=== PATIENT | female | born 1975 | race Caucasian/White ===

== ENCOUNTER → 2018-09-17 14:42 | Outpatient (CLI) | payer OTHER, SELFPAY ==
--- NOTE | 2018-09-17 | DI.MG.S_ITS ---
BILATERAL DIGITAL SCREENING MAMMOGRAM 3D/2D WITH CAD: 09/17/2018 CLINICAL: Routine screening. Family history of breast cancer. Comparison is made to exams dated: 12/27/2016 mammogram, 12/14/2015 mammogram, and 12/12/2014 mammogram - [facility]. The tissue of both breasts is heterogeneously dense. This may lower the sensitivity of mammography. Current study was also evaluated with a Computer Aided Detection (CAD) system. No significant masses, calcifications, or other findings are seen in either breast. There has been no significant interval change. IMPRESSION: NEGATIVE There is no mammographic evidence of malignancy. A 1 year screening mammogram is recommended. This exam was interpreted at Station ID: [id number]. NOTE: For mammograms, a report in lay terms will be sent to the patient. Approximately 15% of breast malignancies will not be visualized mammographically. In the management of a palpable breast mass, a negative mammogram must not discourage biopsy of a clinically suspicious lesion. Electronically Signed By: Sandeep cardoza/elva:09/18/2018 13:51:05 letter sent: Normal Exam ACR BI-RADS Category 1: Negative 3341F
== END ==
PROVIDERS: Visit Provider Nurse Practitioner Obstetrics & Gynecology
DX: Z12.31 Encounter for screening mammogram for malignant neoplasm of breast (principal); Z80.3 Family history of malignant neoplasm of breast
CPT/HCPCS: 77063; 77067

== ENCOUNTER → 2019-07-23 13:11 | Outpatient (CLI) | payer OTHER, SELFPAY ==
--- NOTE | 2019-07-23 | DI.US.S_ITS ---
PROCEDURE: US ABDOMEN COMPLETE INDICATIONS: CROHNS DISEASE, ELEVATED LFT'S TECHNIQUE: Real-time scanning was performed of the abdominal and retroperitoneal organs, with image documentation. COMPARISON: None. FINDINGS: Liver: Liver is diffusely increased in echogenicity. No focal hepatic abnormalities identified. Normal hepatic size. Gallbladder: Surgically absent. Biliary ducts: Intrahepatic bile ducts are non-dilated. Extrahepatic bile duct caliber measures 5.0 mm. Normal is 6-7 mm or less in diameter, or 10 mm or less post-cholecystectomy. Pancreas: Visualized portions of the pancreas are sonographically normal. Spleen: Spleen is normal in size and homogeneous in echotexture. Kidneys: Kidneys are normal in size and echotexture. Right kidney measures 10.3 cm long; left kidney measures 9.1 cm long. No hydronephrosis or nephrolithiasis. No solid masses. Note, the lower pole right kidney is partially obscured. Aorta: Visualized aorta is normal in caliber at less than 3 cm. Iliacs: Proximal common iliac arteries are normal in caliber at less than 2.5 cm. IVC: Intrahepatic inferior vena cava is patent. Miscellaneous: No free abdominal fluid. IMPRESSION: Increased hepatic echogenicity noted possibly related to hepatic steatosis but other sources of hepatocellular disease cannot be excluded. Recommend clinical correlation. Dictated by: Juan GOVEA Interpreted: Antonia Ma MD on 07/23/2019 at 15:26 Approved by: Antonia aM M.D. on 07/23/2019 at 17:42
== END ==
PROVIDERS: Visit Provider Internal Medicine Gastroenterology
DX: K50.00 Crohn's disease of small intestine without complications (principal); R79.89 Other specified abnormal findings of blood chemistry; Z90.49 Acquired absence of other specified parts of digestive tract
CPT/HCPCS: 76700

== ENCOUNTER → 2020-12-30 15:48 | Outpatient (CLI) | payer OTHER, SELFPAY ==
--- NOTE | 2020-12-30 15:49 | DI.MG.S_ITS ---
BILATERAL DIGITAL SCREENING MAMMOGRAM 3D/2D WITH CAD: 12/30/2020 CLINICAL: Routine screening. Family history of breast cancer. Comparison is made to exams dated: 09/17/2018 mammogram - [facility], 12/27/2016 mammogram, and 12/14/2015 mammogram - [facility]. There are scattered fibroglandular elements in both breasts. Current study was also evaluated with a Computer Aided Detection (CAD) system. No significant masses, calcifications, or other findings are seen in either breast. There has been no significant interval change. IMPRESSION: NEGATIVE There is no mammographic evidence of malignancy. A 1 year screening mammogram is recommended. This exam was interpreted at Station ID: [id number]. NOTE: For mammograms, a report in lay terms will be sent to the patient. Approximately 15% of breast malignancies will not be visualized mammographically. In the management of a palpable breast mass, a negative mammogram must not discourage biopsy of a clinically suspicious lesion. Electronically Signed By: Antonia cooper/elva:12/30/2020 16:23:22 letter sent: Normal Exam ACR BI-RADS Category 1: Negative 3341F
== END ==
PROVIDERS: PCP Nurse Practitioner Obstetrics & Gynecology; Referring Provider Nurse Practitioner Obstetrics & Gynecology; Visit Provider Nurse Practitioner Obstetrics & Gynecology
DX: Z12.31 Encounter for screening mammogram for malignant neoplasm of breast (principal); Z80.3 Family history of malignant neoplasm of breast
CPT/HCPCS: 77063; 77067

== ENCOUNTER → 2022-05-25 09:12 | Outpatient (CLI) | payer OTHER, SELFPAY ==
--- NOTE | 2022-05-25 09:15 | DI.MG.S_ITS ---
BILATERAL DIGITAL SCREENING MAMMOGRAM 3D/2D WITH CAD: 05/25/2022 CLINICAL: Routine screening. Family history of breast cancer. Comparison is made to exams dated: 12/30/2020 mammogram, 09/17/2018 mammogram - [facility], 12/27/2016 mammogram, and 12/14/2015 mammogram - [facility]. There are scattered areas of fibroglandular density in both breasts (category b / 25%-50% glandular tissue). Current study was also evaluated with a Computer Aided Detection (CAD) system. No significant masses, calcifications, or other findings are seen in either breast. There has been no significant interval change. IMPRESSION: NEGATIVE There is no mammographic evidence of malignancy. A 1 year screening mammogram is recommended. This exam was interpreted at Station ID: [id number]. NOTE: For mammograms, a report in lay terms will be sent to the patient. Approximately 15% of breast malignancies will not be visualized mammographically. In the management of a palpable breast mass, a negative mammogram must not discourage biopsy of a clinically suspicious lesion. Electronically Signed By: Augustus dang/elva:05/25/2022 12:54:42 letter sent: Normal Exam ACR BI-RADS Category 1: Negative 3341F
== END ==
PROVIDERS: PCP Nurse Practitioner Obstetrics & Gynecology; Referring Provider Nurse Practitioner Obstetrics & Gynecology; Visit Provider Nurse Practitioner Obstetrics & Gynecology
DX: Z12.31 Encounter for screening mammogram for malignant neoplasm of breast (principal); Z80.3 Family history of malignant neoplasm of breast
CPT/HCPCS: 77063; 77067

== ENCOUNTER → 2023-07-04 08:19 | Outpatient (CLI) | payer OTHER, SELFPAY ==
--- NOTE | 2023-07-04 | DI.MG.S_ITS ---
BILATERAL DIGITAL SCREENING MAMMOGRAM 3D/2D WITH CAD: 07/04/2023 Comparison is made to exams dated: 05/25/2022 mammogram, 12/30/2020 mammogram, and 09/17/2018 mammogram - [facility]. There are scattered areas of fibroglandular density in both breasts (category b / 25%-50% glandular tissue). Current study was also evaluated with a Computer Aided Detection (CAD) system. No significant masses, calcifications, or other findings are seen in either breast. IMPRESSION: NEGATIVE There is no mammographic evidence of malignancy. A 1 year screening mammogram is recommended. Based on the Tyrer Cuzick model (a risk assessment model) the patient's lifetime risk is 16.4% and her 10 year risk is 3.7%. According to the ACR, ACS, and NCCN guidelines, an annual breast MRI exam along with mammogram is recommended if the patient's lifetime risk is 20% or greater. This exam was interpreted at Station ID: [id number]. NOTE: For mammograms, a report in lay terms will be sent to the patient. Approximately 15% of breast malignancies will not be visualized mammographically. In the management of a palpable breast mass, a negative mammogram must not discourage biopsy of a clinically suspicious lesion. Electronically Signed By: Giovanna whiteside/elva:07/04/2023 17:10:01 letter sent: Normal Exam ACR BI-RADS Category 1: Negative 3341F
== END ==
PROVIDERS: PCP Nurse Practitioner Obstetrics & Gynecology; Referring Provider Nurse Practitioner Obstetrics & Gynecology; Visit Provider Nurse Practitioner Obstetrics & Gynecology
DX: Z12.31 Encounter for screening mammogram for malignant neoplasm of breast (principal)
CPT/HCPCS: 77063; 77067

== ENCOUNTER → 2024-07-23 08:10 | Outpatient (CLI) | payer OTHER, SELFPAY ==
--- NOTE | 2024-07-23 | DI.MG.S_ITS ---
BILATERAL DIGITAL SCREENING MAMMOGRAM 3D/2D WITH CAD: 07/23/2024 CLINICAL: Routine screening. Family history of breast cancer. Comparison is made to exams dated: 07/04/2023 mammogram, 05/25/2022 mammogram, and 12/30/2020 mammogram - [facility]. There are scattered areas of fibroglandular density (category b / 25%-50% glandular tissue). Current study was also evaluated with a Computer Aided Detection (CAD) system. No significant masses, calcifications, or other findings are seen in either breast. There has been no significant interval change. IMPRESSION: NEGATIVE There is no mammographic evidence of malignancy. A 1 year screening mammogram is recommended. Based on the Tyrer Cuzick model (a risk assessment model) the patient's lifetime risk is 16.2% and her 10 year risk is 3.9%. According to the ACR, ACS, and NCCN guidelines, an annual breast MRI exam along with mammogram is recommended if the patient's lifetime risk is 20% or greater. This exam was interpreted at Station ID: [id number]. NOTE: For mammograms, a report in lay terms will be sent to the patient. Approximately 15% of breast malignancies will not be visualized mammographically. In the management of a palpable breast mass, a negative mammogram must not discourage biopsy of a clinically suspicious lesion. Electronically Signed By: Giovanna Rincon M.D., Ph.D. nanda/elva:07/24/2024 01:47:23 letter sent: Normal Exam ACR BI-RADS Category 1: Negative
== END ==
DX: Z12.31 Encounter for screening mammogram for malignant neoplasm of breast (principal); Z80.3 Family history of malignant neoplasm of breast
CPT/HCPCS: 77063; 77067

== ENCOUNTER 2024-08-14 07:52 | Observation (INO) | payer OTHER, SELFPAY ==
[2024-08-14] VITALS (12 sets, daily range): BP systolic 127–171; BP diastolic 63–91; PULSE 65–93; RESP 13–16; TEMP 36.4–37.2; O2SAT 95–100; BMI 34.8
--- NOTE | 2024-08-14 08:10 | ED.ABDPAIN ---
HPI - Abdominal Pain General Chief Complaint: Abdominal Pain Stated Complaint: abd pain Time Seen by Provider: 08/14/24 08:04 History of Present Illness HPI narrative: Patient here with . Complains abdominal pain nausea and vomiting. No fever chills. Patient has history of Crohn's disease on Remicade followed by gastroenterology [facility]. Has been doing well, had colon resection more than 15 years ago. History of bowel obstruction. Patient states feels similar to this. Symptoms started yesterday. No urinary complaints. Has abdominal pain that radiates to the back off and on. No chest pain. Related Data Home Medications Medication Instructions Recorded Confirmed estradiol 0.05 mg/24 hr semiweekly 0.05 mg transdermal 2XW hormone 08/14/24 08/14/24 transdermal patch (Shelli) therapy estradiol 10 mcg vaginal tablet 10 mcg vaginal 2XW hormone therapy 08/14/24 08/14/24 infliximab-dyyb 120 mg/mL 120 mg SUBCUT WEEKLY Crohns 08/14/24 08/14/24 subcutaneous pen kit (Zymfentra) ondansetron 4 mg disintegrating 4 mg sublingual Q6HP PRN Nausea 08/14/24 08/14/24 tablet And Vomiting opium tincture 10 mg/mL (morphine) 0.6 ml PO 4XD PRN diarrhea 08/14/24 08/14/24 oral opium tincture 10 mg/mL (morphine) 0.6 ml PO 4XD PRN diarrhea 08/14/24 08/14/24 oral prednisone 20 mg tablet 20 mg PO DAILY sinus infection 08/14/24 08/14/24 progesterone micronized 100 mg 200 mg PO DAILY hormone therapy 08/14/24 08/14/24 capsule rizatriptan 10 mg tablet 10 mg PO SEE INSTRUCTIONS headache 08/14/24 08/14/24 sulfamethoxazole 800 1 tab PO BID sinus infection 08/14/24 08/14/24 mg-trimethoprim 160 mg tablet Allergies Allergy/AdvReac Type Severity Reaction Status Date / Time No Known Drug Allergies Allergy Verified 08/14/24 08:02 Review of Systems Review of Systems Narrative: GENERAL: negative chills, fatigue, malaise, fever, sweats. HEENT: negative sinus pain, ear pain, sore throat RESPIRATORY: negative dyspnea, cough CARDIOVASCULAR: negative chest pain, palpitations GASTROINTESTINAL: Positive nausea, vomiting, abdominal pain : negative dysuria, frequency, hematuria MUSCULOSKELETAL: negative muscle or bony pain SKIN: negative rash, skin lesions NEUROLOGIC: negative weakness, numbness ROS Unobtainable: All systems reviewed & are unremarkable except as noted in HPI and below Patient History Surgical History Status post cholecystectomy Family History Grandfather Heart disease Grandmother Heart disease Mother Age: 76 Hypertension Grandmother Gallbladder cancer Sister Age: 44 Melanoma Social History household members: spouse Smoking Status: Never smoker Exam Narrative Exam Narrative: GENERAL: in no distress, not toxic not dyspneic HEAD: Normocephalic. EYES: Pupils equal round ENT: Mucous membranes moist. NECK: Trachea midline. CARDIOVASCULAR: Regular rate and rhythm RESPIRATORY: Clear to auscultation. Breath sounds equal bilaterally. No wheezes, rales, or rhonchi. GASTROINTESTINAL: Abdomen soft, mild diffuse tenderness no peritoneal signs bowel sounds are present no guarding or rebound. No CVA tenderness. No pain out of portion exam. Not tympanic on percussion EXTREMITIES: No gross deformities. BACK: No flank tenderness. NEURO: AOx4. SKIN: Warm and dry PSYCH: Not anxious, is cooperative Initial Vital Signs Initial Vital Signs: Vital Signs Pulse Rate 93 H 08/14/24 07:59 Blood Pressure 171/91 H 08/14/24 07:59 Pulse Oximetry 95 08/14/24 07:59 Course Orders Ordered: Discontinued Medications Acetaminophen (Acetaminophen 325 Mg Tablet) 650 mg PO Q6H PRN PRN Reason: Pain, Mild (1-3) Last Admin: 08/15/24 10:48 Dose: 650 mg Documented By: ANT Enoxaparin Sodium (Enoxaparin 40 Mg/0.4 Ml Syringe) 40 mg SUBCUT DAILY [facility] Last Admin: 08/15/24 07:55 Dose: Not Given Documented By: Admin: 08/14/24 11:45 Dose: Not Given Documented By: CRISTIANA Hydromorphone HCl (Hydromorphone 1 Mg Inj) 1 mg IV NOW ONE Stop: 08/14/24 10:01 Last Admin: 08/14/24 10:14 Dose: 1 mg Documented By: CAMERON Hydromorphone HCl (Hydromorphone 0.5 Mg Inj) 0.5 mg IV Q2H PRN PRN Reason: Pain, Severe (7-10) Last Admin: 08/14/24 21:07 Dose: 0.5 mg Documented By: Admin: 08/14/24 13:48 Dose: 0.5 mg Documented By: CRISTIANA Sodium Chloride (Normal Saline 0.9%) 1,000 mls @ 1,000 mls/hr IV BOLUS ONE Stop: 08/14/24 09:08 Last Infusion: 08/14/24 09:19 Dose: Infused Documented By: Admin: 08/14/24 08:11 Dose: 1,000 mls/hr Documented By: CAMERON Sodium Chloride (Normal Saline 0.9%) 1,000 mls @ 100 mls/hr IV CONT GUALBERTO Last Admin: 08/15/24 07:53 Dose: 100 mls/hr Documented By: Infusion: 08/15/24 07:10 Dose: Infused Documented By: Admin: 08/14/24 21:10 Dose: 100 mls/hr Documented By: Infusion: 08/14/24 21:10 Dose: Infused Documented By: Admin: 08/14/24 11:47 Dose: 100 mls/hr Documented By: CRISTIANA POTASSIUM CHLORIDE IN WATER (Potassium Cl 10 Meq/100 Ml Gema) 10 meq in 100 mls @ 100 mls/hr IV Q1H GUALBERTO Stop: 08/15/24 09:44 Last Admin: 08/15/24 09:57 Dose: Not Given Documented By: Admin: 08/15/24 07:57 Dose: 100 mls/hr Documented By: ANT Morphine Sulfate (Morphine 4 Mg/Ml Inj) 4 mg IV NOW ONE Stop: 08/14/24 08:28 Last Admin: 08/14/24 08:41 Dose: 4 mg Documented By: CAMERON Naloxone HCl (Naloxone 0.4 Mg/Ml Vial) 0.2 mg IV Q2MIN PRN PRN Reason: Opiate Reversal Ondansetron HCl (Ondansetron 4 Mg/2 Ml Inj) 4 mg IV NOW ONE Stop: 08/14/24 08:07 Last Admin: 08/14/24 08:12 Dose: 4 mg Documented By: CAMERON Ondansetron HCl (Ondansetron 4 Mg/2 Ml Inj) 4 mg IV Q8HR PRN PRN Reason: Nausea And Vomiting Last Admin: 08/14/24 13:54 Dose: 4 mg Documented By: CRISTIANA Potassium Chloride (Potassium Chloride 20 Meq Tab) 20 meq PO NOW ONE Stop: 08/15/24 08:54 Last Admin: 08/15/24 09:14 Dose: 20 meq Documented By: ANT Vital Signs Vital signs: Vital Signs - 8 hr 08/14/24 07:59 08/14/24 07:59 08/14/24 08:00 Temperature Pulse Rate 93 H 89 Respiratory Rate Blood Pressure 171/91 H Pulse Oximetry 95 100 Oxygen Delivery Method 08/14/24 08:02 08/14/24 08:10 08/14/24 08:10 Temperature 97.5 F L Pulse Rate 78 80 Respiratory Rate 16 Blood Pressure 171/91 H 168/88 H Pulse Oximetry 100 98 Oxygen Delivery Method Room Air 08/14/24 08:35 08/14/24 08:36 08/14/24 08:36 Temperature Pulse Rate 77 75 Respiratory Rate Blood Pressure 165/82 H Pulse Oximetry 98 99 Oxygen Delivery Method 08/14/24 09:00 08/14/24 09:00 Temperature Pulse Rate 72 Respiratory Rate Blood Pressure 132/63 Pulse Oximetry 99 Oxygen Delivery Method MDM - Abdominal Pain Lab Data 08/15/24 06:20 08/15/24 06:20 Labs: Lab Results 08/14/24 08/14/24 Range/Units 07:55 08:05 WBC 16.0 H (4.5-11.0) X10^3/uL RBC 5.07 (4.0-5.2) X10^6/uL Hgb 15.4 (12.0-16.0) g/dL Hct 45.7 (36-46) % MCV 90.3 (80-100) fL MCH 30.5 (26-34) PG MCHC 33.8 (30-36) % RDW 13.4 (11.6-14.8) % Plt Count 360 (150-400) X10^3/uL Neut % (Auto) 71.9 (50-75) % Lymph % (Auto) 23.4 L (25-40) % Sibley % (Auto) 4.0 (3-14) % Eos % (Auto) 0.1 L (2-4) % Baso % (Auto) 0.6 (0-2) % Neut # (Auto) 31880 H (6677-5705) /uL Lymph # (Auto) 3700 (1359-6389) /uL Sibley # (Auto) 600 (0-900) /uL Eos # (Auto) 0 (0-450) /uL Baso # (Auto) 100 (0-100) /uL Sodium 138 (137-145) mmol/L Potassium 3.9 (3.4-5.1) mmol/L Chloride 103 (98-107) mmol/L Carbon Dioxide 30 (22-32) mmol/L BUN 11 (7-17) mg/dL Creatinine 1.06 H (0.52-1.04) mg/dL Estimated GFR > 60 (>60) mL/min BUN/Creatinine Ratio 10.4 (6-22) Glucose 114 H (70-100) mg/dL Calcium 9.4 (8.4-10.2) mg/dL Total Bilirubin 0.5 (0.2-1.3) mg/dL AST 21 (14-36) IU/L ALT 18 (<35) IU/L Alkaline Phosphatase 72 (38-126) U/L Total Protein 8.2 (6.3-8.2) g/dL Albumin 4.5 (3.5-5.0) g/dL Globulin 3.7 (1.7-4.1) g/dL Albumin/Globulin Ratio 1.2 (1.0-2.8) Lipase 79 (23-300) U/L Urine RBC None seen (0-5/HPF) Urine WBC 1-5/hpf (0-5/HPF) Ur Squamous Epith Cells 1-5 /hpf (0-5/HPF) Urine Bacteria None seen (None) Ur Culture Indicated? Specimen cultured Vol Urine Centrifuged 10ml (spun) Point of care testing: Point of Care Testing Test Results Negative Urine Dip Bedside Urine Glucose Negative Bedside Urine Bilirubin - Negative Bedside Urine Ketone +/- 5 Urine Specific Cameron 1.030 Bedside Urine Occult Blood - Negative Bedside Urine pH 6.0 Bedside Urine Protein + 30 Bedside Urine Urobilinogen - Negative Bedside Urine Nitrite - Negative Bedside Urine Leukocytes +/- [address] scan - abdomen/pelvis: Radiologist's Impression: [address] [place] [address] CT Scan Report Signed Patient: Corina Chan MR#: [id number] : 1975 Acct:[id number] Age/Sex: 49 / F Date of Service: 08/14/24 Loc: ED Accession Number: [id number] Procedure: CT abdomen pelvis w con Ordering Provider: Clayton Durham MD PROCEDURE: CT ABDOMEN PELVIS W CON INDICATIONS: abdominal pain/possible bowel obstruction TECHNIQUE: After the administration of intravenous contrast, axial sections acquired from the lung bases to the pubic symphysis. Coronal and sagittal reformats were performed. For radiation dose reduction, the following was used: automated exposure control, adjustment of mA and/or kV according to patient size. COMPARISON: None. FINDINGS: Image quality: Diagnostic Lower chest: Mild right base atelectasis. Normal heart size. Possible small hiatal hernia. Liver: Unremarkable Gallbladder and biliary system: Cholecystectomy clips, nondilated biliary system allowing for postsurgical state Pancreas: No ductal dilation Spleen: Nonenlarged Adrenals: No discrete nodules Kidneys: No solid mass. No hydronephrosis. Vessels and lymph nodes: The main portal vein appears patent. No abdominal aortic aneurysm. No pathologic lymph nodes by size criteria. Bowel and peritoneum: There is mild gastric distention. There is small bowel obstruction with borderline dilation the jejunal loops up to 3.2 cm in diameter. Transition is seen in the mid abdomen, with fecalized material. The ileal loops are under distended. Colonic diverticula are seen. Small amount pelvic free fluid. Body wall: Tiny fat containing umbilical hernia Pelvis: Bladder is under distended, overall unremarkable. Reproductive organs are not well evaluated on CT, also unremarkable. Bones: No acute or suspicious osseous findings. There are degenerative changes. IMPRESSION: Small bowel obstruction with transition in the mid abdomen in the expected position of the distal jejunum/proximal ileum. Mild gastric distention. Small amount pelvic free fluid, probably reactive. Other findings above. Dictated by: Jericho Jackson M.D. on 08/14/2024 at 9:02 Approved by: Jericho Jackson M.D. on 08/14/2024 at 9:06 [facility] Narrative Medical decision making narrative: Patient here with . Complains abdominal pain nausea and vomiting. No fever chills. Patient has history of Crohn's disease on Remicade followed by gastroenterology [facility]. Has been doing well, had colon resection more than 15 years ago. History of bowel obstruction. Patient states feels similar to this. Symptoms started yesterday. No urinary complaints. Has abdominal pain that radiates to the back off and on. No chest pain. After history and exam CBC CMP lipase urinalysis morphine Zofran normal saline CT abdomen pelvis MDM Medical records reviewed: No recent visit for this complaint Differential considered: Includes but not limited to bowel obstruction colitis diverticulitis appendicitis bowel perforation Lab Test results independently reviewed as above. Pertinent findings: WBC 16 hemoglobin 15 sodium 138 potassium 3.9 bicarb 30 BUN 11 creatinine 1.06 lipase 79 Independently reviewed EKG none indicated at this time Imaging studies independently reviewed: CT abdomen pelvis reveals small bowel obstruction Consultations: 9:30 a.m.. Spoke with General surgery Dr. Alcala, who would like medicine to admit and he will follow in consult. No NG tube indicated at this time, 9:[address] Kamara, hospitalist, who will admit patient Treatments: Morphine Zofran normal saline Re-evaluations: 9:15 a.m.. Updated patient Diagnosis bowel obstructions, they do agree for admission. Pain is controlled. Nausea is controlled. Discussion: Appropriate for admission for bowel obstruction. General surgery and hospitalist contacted. Patient and agree for admit. Diagnosis: Small-bowel obstruction Discharge Plan Departure Patient Disposition: Admitted as Observation Clinical Impression: Small bowel obstruction Admit Date/Time: 08/14/24 09:40 Admit Provider: Augusto Kamara
[2024-08-14] MEDS: SODIUM CHLORIDE 0.9% 1,000 ML 1000 ML IV (08:11)
[2024-08-14] MEDS: ONDANSETRON 4 MG/2 ML INJ IV ×2 (08:12→13:54)
[2024-08-14 08:17] LABS: Add Manual Diff / Slide Review NO; Basophils Absolute Auto 100 /uL (0-100); Basophils Percent Auto 0.6 % (0-2); Eosinophils Absolute Auto 0 /uL (0-450); Eosinophils Percent Auto 0.1 % (2-4); Hematocrit 45.7 % (36-46); Hemoglobin 15.4 g/dL (12.0-16.0); Lymphocytes Absolute Auto 3700 /uL (1100-4500); Lymphocytes Percent Auto 23.4 % (25-40); Mean Corpuscular HGB Conc 33.8 % (30-36); Mean Corpuscular Hemoglobin 30.5 PG (26-34); Mean Corpuscular Volume 90.3 fL (80-100); Monocytes Absolute Auto 600 /uL (0-900); Neutrophils Absolute Auto 11500 /uL (1500-7000); Neutrophils Percent Auto 71.9 % (50-75); Platelet Count 360 X10^3/uL (150-400); Red Blood Cell Count 5.07 X10^6/uL (4.0-5.2); Red Cell Distribution Width 13.4 % (11.6-14.8)
[2024-08-14 08:19] LABS: RBC Urine None Seen (0-5/HPF); Urine Volume 10mL (spun)
[2024-08-14 08:20] LABS: Bacteria Urine None Seen; Culture Indicated Urine Specimen Cultured; Squamous Epithelial Cell Urine 1-5 /HPF (0-5/HPF); WBC Urine 1-5/HPF (0-5/HPF)
[2024-08-14 08:39] LABS: Alanine Aminotransferase 18 IU/L (<35); Albumin 4.5 g/dL (3.5-5.0); Albumin Globulin Ratio 1.2 (1.0-2.8); Alkaline Phosphatase 72 U/L (38-126); Aspartate Aminotransferase 21 IU/L (14-36); BUN Creatinine Ratio 10.4 (6-22); Bilirubin Total 0.5 mg/dL (0.2-1.3); Blood Urea Nitrogen 11 mg/dL (7-17); Calcium 9.4 mg/dL (8.4-10.2); Carbon Dioxide 30 mmol/L (22-32); Chloride 103 mmol/L (98-107); Estimated Glomerular Filt Rate > 60 mL/min (>60); Globulin 3.7 g/dL (1.7-4.1); Glucose 114 mg/dL (70-100); HEMOLYSIS < 15 (0-50); Lipase 79 U/L (23-300); Potassium 3.9 mmol/L (3.4-5.1); Sodium 138 mmol/L (137-145); Total Protein 8.2 g/dL (6.3-8.2)
[2024-08-14] MEDS: MORPHINE 4 MG/ML INJ IV (08:41)
[2024-08-14] MEDS: HYDROMORPHONE 1 MG INJ IV (10:14)
--- NOTE | 2024-08-14 10:47 | PM.HP.1 ---
History of Present Illness History of Present Illness Date Patient Seen: 08/14/24 Time Patient Seen: 10:47 Chief complaint: abd pain Narrative: The patient was a 49-year-old female with a history of Crohn's disease on chronic Remicade. She was followed by [facility]. She does have a history of colon resection distantly as well as a history of subsequent bowel obstruction. She presented with the abdominal pain with symptoms ongoing since yesterday. She notes that she was having recurrent partial small-bowel obstructions 20 years ago that led up to the decision to do a limited resection of distal small bowel and possibly a partial sigmoid colectomy. She has been around on Remicade and stable since that time. She developed abdominal pain yesterday, lack of flatus and bowel movements at reminded her of her previous bowel obstructions. The pain is midepigastric and left upper quadrant. There was no radiation to the pain. Pain medications in the ED did help the pain. She denies fevers or chills. She has been on Remicade for a very long time. She notes that her inflammatory markers are usually normal even when her Crohn's is active. No recent diarrhea, no BM since yesterday. No rectal bleeding. [facility] Surgical History Status post cholecystectomy Family History Grandfather Heart disease Grandmother Heart disease Mother Age: 76 Hypertension Grandmother Gallbladder cancer Sister Age: 44 Melanoma Meds Home Medications and Allergies Home Medications Medication Instructions Recorded Confirmed Type methocarbamol 750 mg tablet 750 mg PO QIDP PRN #120 tabs 05/02/17 Rx (Robaxin-750) ondansetron 4 mg disintegrating 4 mg sublingual Q6HP PRN ##30 05/02/17 Rx tablet (Zofran ODT) rizatriptan 10 mg tablet 10 mg PO SEE INSTRUCTIONS #30 tabs 05/02/17 Rx liattnxq-kyrzcbbtj-tcroxjkju 3.5 10 ml OTIC TID ##1 05/05/17 Rx mg-10,000 unit/mL-1 % ear drops,susp levothyroxine 50 mcg tablet 50 mcg PO QAM #90 tabs 06/20/17 Rx Allergies Allergy/AdvReac Type Severity Reaction Status Date / Time No Known Drug Allergies Allergy Verified 08/14/24 08:02 Review of Systems Review of Systems Narrative: All else reviewed and otherwise unremarkable except as noted in the history and physical. Exam Vital Signs (past 8 hours): - 08/14/24 07:59 08/14/24 07:59 08/14/24 08:00 Temperature Pulse Rate 93 H 89 Respiratory Rate Blood Pressure 171/91 H Pulse Oximetry 95 100 Oxygen Delivery Method 08/14/24 08:02 08/14/24 08:10 08/14/24 08:10 Temperature 97.5 F L Pulse Rate 78 80 Respiratory Rate 16 Blood Pressure 171/91 H 168/88 H Pulse Oximetry 100 98 Oxygen Delivery Method Room Air 08/14/24 08:35 08/14/24 08:36 08/14/24 08:36 Temperature Pulse Rate 77 75 Respiratory Rate Blood Pressure 165/82 H Pulse Oximetry 98 99 Oxygen Delivery Method 08/14/24 09:00 08/14/24 09:00 08/14/24 09:30 Temperature Pulse Rate 72 69 Respiratory Rate Blood Pressure 132/63 Pulse Oximetry 99 98 Oxygen Delivery Method 08/14/24 09:30 08/14/24 10:00 08/14/24 10:00 Temperature Pulse Rate 73 Respiratory Rate Blood Pressure 127/70 129/71 Pulse Oximetry 97 Oxygen Delivery Method Oxygen Delivery Method Room Air Narrative Exam Narrative: NAD, alert and oriented, fluent speech, calm. Normocephalic skull, EOMI, anicteric sclera, symmetric pupils. Oropharynx unremarkable, no droop. Neck supple, midline trachea, no adenopathy. Lungs clear, normal rate and effort. Heart regular, no murmur gallop or rub. Abdomen is soft, non distended and non tender. Hypoactive bowel tones. Extremities are free of edema. Skin is free of rash or lesions. Joints are not swollen or deformed. Judgment appears to be normal. Objective Imaging CT scan - abdomen: Radiologist's impression: MPRESSION: Small bowel obstruction with transition in the mid abdomen in the expected position of the distal jejunum/proximal ileum. Mild gastric distention. Small amount pelvic free fluid, probably reactive. Other findings above. Labs 08/14/24 08:05 08/14/24 08:05 Labs: Laboratory Results - last 24 hr 08/14/24 08/14/24 07:55 08:05 WBC 16.0 H RBC 5.07 Hgb 15.4 Hct 45.7 MCV 90.3 MCH 30.5 MCHC 33.8 RDW 13.4 Plt Count 360 Neut % (Auto) 71.9 Lymph % (Auto) 23.4 L [place] % (Auto) 4.0 Eos % (Auto) 0.1 L Baso % (Auto) 0.6 Neut # (Auto) 94461 H Lymph # (Auto) 3700 [place] # (Auto) 600 Eos # (Auto) 0 Baso # (Auto) 100 Sodium 138 Potassium 3.9 Chloride 103 Carbon Dioxide 30 BUN 11 Creatinine 1.06 H Estimated GFR > 60 BUN/Creatinine Ratio 10.4 Glucose 114 H Calcium 9.4 Total Bilirubin 0.5 AST 21 ALT 18 Alkaline Phosphatase 72 Total Protein 8.2 Albumin 4.5 Globulin 3.7 Albumin/Globulin Ratio 1.2 Lipase 79 Urine RBC None seen Urine WBC 1-5/hpf Ur Squamous Epith Cells 1-5 /hpf Urine Bacteria None seen Ur Culture Indicated? Specimen cultured Vol Urine Centrifuged 10ml (spun) Assessment & Plan Assessment & Plan narrative: 1. Small bowel obstruction, present on admission and active. 2. Remote partial colectomy, present on admission and active. 3. Crohn's disease, present on admission and active Plan: -NPO -ice chips -analgesics -NG tube decompression if she fails to improve or worsens. -general surgery is consulted. Resuscitation status is full code Anticipate 1 night of hospital stay, observation status. Proxy decision maker is Time-Based Coding :: 35 min spent with patient and on the chart (including review of chart, obtaining history, exam, reviewing outside data, placing orders, documenting exam and treatment plan, and counseling patient) on 08/14. Quality MIPS - Admit The patient?s Advance Care plan is not present because I confirmed today that the patient does not wish or was not able to name a surrogate decision maker or provide an Advance Care Plan.: Yes MIPS - Meds 'Current medications' to include all prescriptions, ozbl-pbi-etofddo products, herbals, cannabis/cannabidiol products, and vitamin/mineral/dietary (nutritional) supplements. I have utilized all available resources to obtain, update, or review the patient?s current medications. [If Yes, STOP here]: Yes
[2024-08-14] MEDS: SODIUM CHLORIDE 0.9% 1,000 ML 100 ML IV ×2 (11:47→21:10)
[2024-08-14] MEDS: HYDROMORPHONE 0.5 MG INJ IV ×2 (13:48→21:07)
[2024-08-15] VITALS: BP 131/83; PULSE 64; RESP 18; TEMP 36.6; O2SAT 95
[2024-08-15 04:39] VITALS: BP 141/84; PULSE 64; RESP 16; TEMP 37.3; O2SAT 97
[2024-08-15 06:44] LABS: Add Manual Diff / Slide Review NO; Basophils Absolute Auto 100 /uL (0-100); Basophils Percent Auto 0.8 % (0-2); Eosinophils Absolute Auto 200 /uL (0-450); Eosinophils Percent Auto 1.3 % (2-4); Hematocrit 40.5 % (36-46); Hemoglobin 13.4 g/dL (12.0-16.0); Lymphocytes Absolute Auto 4100 /uL (1100-4500); Lymphocytes Percent Auto 32.5 % (25-40); Mean Corpuscular HGB Conc 33.2 % (30-36); Mean Corpuscular Hemoglobin 30.1 PG (26-34); Mean Corpuscular Volume 90.6 fL (80-100); Monocytes Absolute Auto 700 /uL (0-900); Monocytes Percent Auto 5.3 % (3-14); Neutrophils Absolute Auto 7600 /uL (1500-7000); Neutrophils Percent Auto 60.1 % (50-75); Platelet Count 284 X10^3/uL (150-400); Red Blood Cell Count 4.47 X10^6/uL (4.0-5.2); Red Cell Distribution Width 13.7 % (11.6-14.8); White Blood Cell Count 12.6 X10^3/uL (4.5-11.0)
[2024-08-15 07:01] LABS: BUN Creatinine Ratio 16.5 (6-22); Blood Urea Nitrogen 13 mg/dL (7-17); Calcium 8.1 mg/dL (8.4-10.2); Carbon Dioxide 26 mmol/L (22-32); Chloride 107 mmol/L (98-107); Estimated Glomerular Filt Rate > 60 mL/min (>60); Glucose 95 mg/dL (70-100); HEMOLYSIS < 15 (0-50); Potassium 3.4 mmol/L (3.4-5.1); Sodium 137 mmol/L (137-145)
[2024-08-15 07:23] LABS: C-Reactive Protein Quant < 0.5 mg/dL (<1.0)
--- NOTE | 2024-08-15 07:46 | DI.RAD.S_ITS ---
PROCEDURE: XR KUB INDICATIONS: SBO TECHNIQUE: One view of the abdomen acquired. COMPARISON: None. FINDINGS: Surgical changes and devices: Right upper quadrant surgical clips suggestive of prior cholecystectomy. Bowel: Scattered small and large bowel intraluminal air without evidence of air-fluid levels or gaseous distension. No definite air is seen in the rectum. No overt signs of obstruction. Soft tissues: No suspicious abdominal calcifications. Visualized solid organ contours appear normal in size. Bones: No suspicious bony lesions. IMPRESSION: No overt signs of small bowel obstruction. Dictated by: Michael Rodríguez M.D. on 08/15/2024 at 8:52 Approved by: Michael Rodríguez M.D. on 08/15/2024 at 8:54
[2024-08-15] MEDS: SODIUM CHLORIDE 0.9% 1,000 ML 100 ML IV (07:53)
[2024-08-15] MEDS: POTASSIUM CHLORIDE IN WATER 10 MEQ/100 ML PIGGYBACK 100 MEQ IV (07:57)
[2024-08-15 08:00] VITALS: BP 135/85; PULSE 66; RESP 14; TEMP 36.6; O2SAT 95
[2024-08-15] MEDS: POTASSIUM CHLORIDE 20 MEQ TAB PO (09:14)
--- NOTE | 2024-08-15 09:17 | PM.PN.1 ---
Subjective Subjective Interval history: Summary: This is a 49-year-old female with Crohn's disease on chronic Remicade. She was followed by GI at [facility]. She was status post bowel resection near the ileum about 20 years ago after a series of bowel obstructions and has done well since that time. She presented with SBO, transition point on CT. She was treated with NPO status and IV fluids and has improved. S: no nausea, no flatus or but several BMs. Some tenderness in abdomen with palpation. She does feel better. Exam Vital Signs (past 8 hours): - 08/15/24 04:39 08/15/24 08:00 Temperature 99.1 F 97.8 F Pulse Rate 64 66 Respiratory Rate 16 14 Blood Pressure 141/84 H 135/85 Pulse Oximetry 97 95 Oxygen Flow Rate 0 0 Oxygen Delivery Method Room Air Oxygen Flow Rate 0 Narrative Exam Narrative: NAD, no acute distress. Lungs are clear, normal effort. Heart is regular, no murmur. Abdomen has hypoactive bowel tones, is soft. She was tender in the left and right upper quadrant with palpation. No rebound. No leg edema. Objective Imaging Abdominal x-ray: My impression: One air-fluid level, otherwise nonspecific small bowel gas pattern. Radiologist's impression: No overt signs of small bowel obstruction. Labs 08/15/24 06:20 08/15/24 06:20 Labs: Laboratory Results - last 24 hr 08/15/24 06:20 WBC 12.6 H RBC 4.47 Hgb 13.4 Hct 40.5 MCV 90.6 MCH 30.1 MCHC 33.2 RDW 13.7 Plt Count 284 Neut % (Auto) 60.1 Lymph % (Auto) 32.5 [place] % (Auto) 5.3 Eos % (Auto) 1.3 L Baso % (Auto) 0.8 Neut # (Auto) 7600 H Lymph # (Auto) 4100 [place] # (Auto) 700 Eos # (Auto) 200 Baso # (Auto) 100 Sodium 137 Potassium 3.4 Chloride 107 Carbon Dioxide 26 BUN 13 Creatinine 0.79 Estimated GFR > 60 BUN/Creatinine Ratio 16.5 Glucose 95 Calcium 8.1 L C-Reactive Protein < 0.5 PFSH Surgical History Status post cholecystectomy Family History Grandfather Heart disease Grandmother Heart disease Mother Age: 76 Hypertension Grandmother Gallbladder cancer Sister Age: 44 Melanoma Social History household members: spouse Smoking Status: Never smoker Assessment & Plan Assessment & Plan narrative: 1. Small bowel obstruction, present on admission and Improving. 2. Remote partial colectomy, present on admission and active. 3. Crohn's disease, present on admission and active Plan: - discussed with surgery, we will try water and increased ambulation this morning to see how she responds. - May be able to advance diet later today depending on how she does. Resuscitation status is full code Currently observation status. Time-Based Coding :: [TOTAL MINUTES] spent with patient and on the chart (including review of chart, obtaining history, exam, reviewing outside data, placing orders, documenting exam and treatment plan, and counseling patient) on [DATE]. Quality VTE Deep Vein Thrombosis/Pulmonary Embolism Present on Admission: No
[2024-08-15] MEDS: ACETAMINOPHEN 325 MG TABLET 650 MG PO (10:48)
[2024-08-15 12:00] VITALS: BP 138/86; PULSE 66; RESP 14; TEMP 36.8; O2SAT 97
--- NOTE | 2024-08-15 13:33 | CM.DANOTE ---
Initial DCP Assessment Visit Note Reviewed EMR and team rounds for status updates. Went to meet with pt, however she was found to be sleeping, and per RN, did not get any sleep last night. Pt lives independently with her spouse in their own home on [address]. Her spouse will plan to transport her home once she medically cleared for d/c, anticipated for later today (08/15). PIZZA MA[employer]ER did provide her a Medical Priority Boarding [place], and gave it to her nurse for when she wakes up. No CM assistance needs are further indicated at this time. Payor: [facility] PCP: u/k Pt is a 49 year-old F who presented to the ED last evening with c/o nausea and vomiting, sudden onset which worsened over the course of the day. Pt has a hx of Crohn's disease, is taking Remicade, and is followed by Gastroenterology. She has a prior hx of bowel obstruction, and had a colon resection about 15-years ago. CT abd/pelvis showed a small bowel obtruction. She was started on IV fluids/pain meds/Zofran with good effect. Surgery was consulted, and the plan was made to be made NPO and monitored conservatively overnight, with the plan of surgical intervention if her SBO did not resolve on it's own. Today, she is feeling much better, has had return of bowel function and pain is now resolved. Plan is for d/c home with spouse later this afternoon. Discharge Planning/Care Management CM Discharge Assessment Start: 08/15/24 13:31 Freq: Status: Active Protocol: Document 08/15/24 13:31 DPL (Rec: 08/15/24 13:33 DPL [id number]) Discharge Planning Assessment Assigned Wire Splicer JOSEPHINE Villasenor Advance Directives? No History Provided By Medical Record Expected Length of Stay 1 Has Patient been admitted in last 30 No days? Prior Living Arrangements House Household Members spouse Type of transporation used prior to Drives own vehicle admit Independent with ADL's Yes Is patient alert and oriented? Yes Comment N/A Comment N/A Comment OP Gastroenterology Barriers to Discharge No Discharge Plan Home Transportation Arrangement Spouse Referrals Initiated None needed Whiteboard Updated in Patient Room with Yes name and ext. # of Wire Splicer Review Status In Process Please Provide Date Initial DC 08/15/24 Assessment Was Performed
--- NOTE | 2024-08-15 14:52 | PM.DS.1 ---
History of Present Illness History of Present Illness Chief complaint: abd pain Narrative: The patient was a 49-year-old female with a history of Crohn's disease on chronic Remicade. She was followed by [facility]. She does have a history of colon resection distantly as well as a history of subsequent bowel obstruction. She presented with the abdominal pain with symptoms ongoing since yesterday. She notes that she was having recurrent partial small-bowel obstructions 20 years ago that led up to the decision to do a limited resection of distal small bowel and possibly a partial sigmoid colectomy. She has been around on Remicade and stable since that time. She developed abdominal pain yesterday, lack of flatus and bowel movements at reminded her of her previous bowel obstructions. The pain is midepigastric and left upper quadrant. There was no radiation to the pain. Pain medications in the ED did help the pain. She denies fevers or chills. She has been on Remicade for a very long time. She notes that her inflammatory markers are usually normal even when her Crohn's is active. No recent diarrhea, no BM since yesterday. No rectal bleeding. Discharge Providers Provider Date of admission: 08/14/24 09:40 Discharge Date: 08/15/24 Primary care physician: gastroenterology Consults: General surgery. Discharge provider: Augusto Kamara MD Summary Hospital Course Discharge Diagnosis: 1. Small bowel obstruction, present on admission and resolved. 2. Remote partial colectomy, present on admission and active. 3. Crohn's disease, present on admission and active Hospital Course: She was admitted with bowel obstruction symptoms in his CT that indicated a bowel obstruction with transition point. She was treated with simple management of analgesia, IV fluids and bowel rest and improved. On the day of discharge he would multiple bowel movements and her KUB was fairly unremarkable. Her abdomen exam was improved and she was able to eat Jell-O without difficulty. She requested discharge home, was discussed with surgery, was felt to be stable for discharge home. She was an appointment with [facility] gastroenterology already scheduled for next week. She was asked to come back for abdominal pain, vomiting, fevers, or chills. Exam Vital Signs (past 8 hours): - 08/15/24 08:00 08/15/24 12:00 Temperature 97.8 F 98.3 F Pulse Rate 66 66 Respiratory Rate 14 14 Blood Pressure 135/85 138/86 Pulse Oximetry 95 97 Oxygen Flow Rate 0 0 Oxygen Delivery Method Room Air Oxygen Flow Rate [address] scan - abdomen: Radiologist's impression: CT scan - abdomen: Radiologist's impression: IMPRESSION: Small bowel obstruction with transition in the mid abdomen in the expected position of the distal jejunum/proximal ileum. Mild gastric distention. Small amount pelvic free fluid, probably reactive. Labs 08/15/24 06:20 08/15/24 06:20 Labs: Laboratory Results - last 24 hr 08/15/24 06:20 WBC 12.6 H RBC 4.47 Hgb 13.4 Hct 40.5 MCV 90.6 MCH 30.1 MCHC 33.2 RDW 13.7 Plt Count 284 Neut % (Auto) 60.1 Lymph % (Auto) 32.5 [place] % (Auto) 5.3 Eos % (Auto) 1.3 L Baso % (Auto) 0.8 Neut # (Auto) 7600 H Lymph # (Auto) 4100 [place] # (Auto) 700 Eos # (Auto) 200 Baso # (Auto) 100 Sodium 137 Potassium 3.4 Chloride 107 Carbon Dioxide 26 BUN 13 Creatinine 0.79 Estimated GFR > 60 BUN/Creatinine Ratio 16.5 Glucose 95 Calcium 8.1 L C-Reactive Protein < 0.5 PFSH Surgical History Status post cholecystectomy Family History Grandfather Heart disease Grandmother Heart disease Mother Age: 76 Hypertension Grandmother Gallbladder cancer Sister Age: 44 Melanoma Social History household members: spouse Smoking Status: Never smoker Discharge Assessment & Plan Assessment and Plan Assessment: 1. Small bowel obstruction, present on admission and resolved. 2. Remote partial colectomy, present on admission and active. 3. Crohn's disease, present on admission and active Plan of Treatment: Discharge home on a soft low residue diet for several days and then advance. GI follow up next week as scheduled. Discharge Plan Discharge Plan Patient Disposition: Home Provider Discharge Comment: Bowel obstruction improved, stable for discharge home. She has an appointment with GI at [facility] next week. Discharge orders & Medications Prescriptions: Continued opium tincture 10 mg/mL (morphine) tincture 0.6 ml PO 4XD PRN (Reason: diarrhea) rizatriptan 10 MG tablet 10 mg PO SEE INSTRUCTIONS ondansetron 4 MG tablet,disintegrating 4 mg Sublingual Q6HP PRN (Reason: Nausea And Vomiting) estradiol [Shelli] 0.05 mg/24 hr patch semiweekly 0.05 mg transdermal 2XW Rx Instructions: twice weekly estradiol 10 mcg tablet 10 mcg vaginal 2XW opium tincture 10 mg/mL (morphine) tincture 0.6 ml PO 4XD PRN (Reason: diarrhea) prednisone 20 mg tablet 20 mg PO DAILY Rx Instructions: 10 days progesterone micronized 100 mg capsule 200 mg PO DAILY sulfamethoxazole-trimethoprim 800-160 mg tablet 1 tab PO BID Rx Instructions: 10 days-currently day 2 Zymfentra 120 mg/mL pen injector kit 120 mg SUBCUT WEEKLY Patient Comments: [NO ORIGINAL SIG] Rx Instructions: takes every 2 weeks - last taken last week Medication counseling provided by Pharmacist: No Diet/Activity/Treatments Diet: Diet as Tolerated Diet comment: Soft foods, low residue for a few days then advance. Visit Report/Discharge Packet Instructions: DI for Small Bowel Obstruction Stand Alone Forms: Patient Portal/API, Stroke Signs & Symptoms Discharge Data Attending Provider: Augusto Kamara Admit Date/Time: 08/14/24 09:40 Quality VTE Deep Vein Thrombosis/Pulmonary Embolism Present on Admission: No
--- NOTE | 2024-08-15 15:36 | PC.NURSE ---
Day shift: Paperwork signed and all questions answered. Tolerated clears and said I do want to go home today. Spouse in room for teachings. Taken to car by this proposal lead writer at approx [phone] via [employer]. They are heading back to [place]. No new MD scripts. Pt also has all personals belongings.
== END 2024-08-15 15:25 | disposition home or self-care (01) ==
LOC: ED 09:37 → AC 09:40
PROVIDERS: Admitting Provider Hospitalist; Emergency Provider Emergency Medicine; Referring Provider Emergency Medicine; Visit Provider Hospitalist
DX: K56.609 Unspecified intestinal obstruction, unspecified as to partial versus complete obstruction (principal); K50.90 Crohn's disease, unspecified, without complications; Z90.49 Acquired absence of other specified parts of digestive tract
CPT/HCPCS: 36415; 74018; 74177; 80048; 80053; 81003; 81015; 81025; 83690; 85025; 86140; 87086; 96361; 96374; 96375; 96376; 99284; G0378; J1171; J2270; J2405; Q9967

== ENCOUNTER → 2024-10-15 08:19 | Outpatient (CLI) | payer OTHER, SELFPAY ==
[2024-08-14 10:45] VITALS: BMI 34.8
--- NOTE | 2024-10-15 | DI.CT.S_ITS ---
PROCEDURE: CT SINUS SCREEN WO CON INDICATIONS: Chronic pansinusitis/Headache/Postnasal drip TECHNIQUE: Noncontrast 3.0 mm axial images acquired from the frontal sinuses to the mid-sella, with coronal and sagittal reformats. For radiation dose reduction, the following was used: automated exposure control, adjustment of mA and/or kV according to patient size. COMPARISON: None. FINDINGS: Image quality: Excellent. Maxillary Sinuses: No bony remodeling or destruction. Very minimal bilateral maxillary sinus mucosal thickening, approximately 1 mm. No air-fluid levels. Ethmoid Air Cells: No bony remodeling or destruction. Mild bilateral ethmoid sinus mucosal thickening. Minimal patchy bilateral ethmoid opacification. Sphenoid Sinuses: Small left sphenoid sinus mucous retention cyst. Focal bilateral sphenoid sinus mucosal thickening. No air-fluid level. Frontal Sinuses: No bony remodeling or destruction. Sinuses are clear. Ostiomeatal Complexes: Ostiomeatal complexes are patent. No Carolyne cells. Miscellaneous: Visualized intra-orbital contents are normal. No audelia bullosa or paradoxical turbinate curvature. No nasal septal deviation. IMPRESSION: 1. Mild findings of chronic sinusitis. No acute sinusitis. Dictated by: Harvinder Presley M.D. on 10/15/2024 at 10:24 Approved by: Harvinder Presley M.D. on 10/15/2024 at 10:31
== END ==
PROVIDERS: PCP Family Medicine; Referring Provider Otolaryngology; Visit Provider Otolaryngology
DX: J32.4 Chronic pansinusitis (principal); R51.9 Headache, unspecified; R09.82 Postnasal drip
CPT/HCPCS: 70486

== ENCOUNTER → 2025-07-30 14:15 | Outpatient (CLI) | payer OTHER, SELFPAY ==
[2024-08-14 10:45] VITALS: BMI 34.8
--- NOTE | 2025-07-30 14:16 | DI.MG.S_ITS ---
MM screening mammo BI: 07/30/2025. BI-RADS: 1 CLINICAL: 50-year old female for bilateral screening mammogram. Tyrer-Cuzick lifetime risk of 18.2%. Current reported family history of breast cancer: mother. PRIOR EXAMS 07/23/2024, 07/04/2023, 05/25/2022, 12/30/2020. MAMMOGRAPHY TECHNIQUE: 2D and 3D (tomosynthesis) digital mammographic views obtained, with additional images as needed for full coverage. Current study was also evaluated with a Computer Aided Detection (CAD) system. DENSITY B. There are scattered areas of fibroglandular density. MAMMOGRAPHY FINDINGS Bilateral: No suspicious mass, asymmetry, microcalcification, or other abnormality seen. IMPRESSION: * No evidence of malignancy. RECOMMENDATIONS Bilateral * Annual screening mammography. OVERALL ASSESSMENT CATEGORY BI-RADS-1: Negative. The [employer] recommends annual screening mammography beginning at age 40 for women with average risk of breast cancer. ELECTRONICALLY SIGNED: Pancho Amaya M.D. on 07/31/2025 at 10:02:11 AM PT Interpreting Station ID: [id number]
== END ==
LOC: MAMMO 14:15
PROVIDERS: PCP Obstetrics & Gynecology; Referring Provider Obstetrics & Gynecology; Visit Provider Obstetrics & Gynecology
DX: Z12.31 Encounter for screening mammogram for malignant neoplasm of breast (principal); Z80.3 Family history of malignant neoplasm of breast
CPT/HCPCS: 77063; 77067